=== PATIENT | male | born 1955 | race African-American/Black ===

== ENCOUNTER 2023-12-28 03:12 | Emergency (ER) | payer OTHER, SELFPAY ==
[2023-12-28] MEDS ORDERED: Acetaminophen 500 MG TAB ONE (03:30)
[2023-12-28 03:43] LABS: #Basophils 0.07 10x3/uL (0.0-0.2); %Basophils 1.2 % (0.0-1.0); %Eosinophils 7.2 % (0.0-10.0); %Lymphocytes 25.3 % (21.0-51.0); Hematocrit 47.1 % (42.0-52.0); Hemoglobin 15.8 g/dL (14.0-18.0); Mean Corpuscular HGB CONC 33.5 g/dL (32.0-36.0); Mean Corpuscular Hemoglobin 31.7 pg (27.0-31.0); Mean Corpuscular Volume 94.4 fL (78.0-98.0); Mean Platelet Volume 11.1 fL (7.4-10.4); Platelet Count 135 10x3/uL (130-400); RBC Distribution Width 13.5 % (11.5-14.5); Red Blood Cell (RBC) Count 4.99 mill/uL (4.70-6.10)
[2023-12-28 03:57] LABS: ALT (SGPT) 25 U/L (8-55); AST (SGOT) 24 U/L (5-34); Albumin 3.4 g/dL (3.4-4.8); Alkaline Phosphatase 138 U/L (40-110); Anion Gap 12 mmol/L (10-20); BUN (Urea Nitrogen) 13 mg/dL (8.4-25.7); Bilirubin, Total 0.6 mg/dL (0.2-1.2); Calc. Creatinine Clearance 0 mL/min (70-130); Calcium 9.1 mg/dL (7.8-10.44); Carbon Dioxide 23 mmol/L (23-31); Chloride 108 mmol/L (98-107); Estimated GFR 59; Glucose 98 mg/dL (80-115); Potassium 3.8 mmol/L (3.5-5.1); Protein, Total 7.4 g/dL (5.8-8.1); Sodium 139 mmol/L (136-145)
== END 2023-12-28 04:39 ==
LOC: ERS 03:12
DX: G40.909 Epilepsy, unspecified, not intractable, without status epilepticus (principal); Z55.6 Problems related to health literacy
CPT/HCPCS: 70450; 80053; 85025; 93005; 94760